=== PATIENT | female | born 1980 | race Two or more races ===

== ENCOUNTER 2019-04-14 05:30 | Day surgery (SDC) | payer OTHER ==
[~2019-04-14 05:30] MED LIST: SPIRONOLACTONE25 MG PO
[2019-04-14] MEDS ORDERED: PERCOCET 5-3251 EACH PO (09:46)
[2019-04-14] MEDS ORDERED: KETO10TA2 PO (09:47)
[2019-04-14] MEDS ORDERED: NEURONTIN300 MG PO (09:48)
[2019-04-14] MEDS ORDERED: RECTICARE30 GM TOP (09:49)
[2019-04-16] MEDS ORDERED: BACTRIM DS TAB1 EACH PO (13:52)
[2019-04-16] MEDS ORDERED: URETRON D-S TAB1 TAB PO (13:52)
== END 2019-04-14 17:35 | disposition home or self-care (01) ==
LOC: CIR.AMB 05:30
DX: K64.4 Residual hemorrhoidal skin tags (principal)

== ENCOUNTER → 2019-11-24 | Emergency (ER) | payer OTHER ==
[~2019-11-24] VITALS: Ht 162.6 cm; Wt 59.0 kg
[~2019-11-24] MED LIST changes: +ALDACTONE100 MG; +BACTRIM DS TAB1 EACH PO; +KETO10TA2 PO; +NEURONTIN300 MG PO; +PERCOCET 5-3251 EACH PO; +PROZAC20 MG; +RECTICARE30 GM TOP; +URETRON D-S TAB1 TAB PO
== END | disposition home or self-care (01) ==
LOC: ER 19:17
DX: S61.220A Laceration with foreign body of right index finger without damage to nail, initial encounter (principal); W26.0XXA Contact with knife, initial encounter; Y93.89 Activity, other specified; Y92.098 Other place in other non-institutional residence as the place of occurrence of the external cause; Y99.8 Other external cause status